=== PATIENT | male | born 1955 | race African-American/Black ===

== ENCOUNTER → 2021-06-15 | Outpatient (CLI) | payer OTHER | LOC: HYPER 15:00 | PROVIDERS: ATTEND Emergency Medicine | DX: S30.812A Abrasion of penis, initial encounter (principal); S31.30XA Unspecified open wound of scrotum and testes, initial encounter; Z87.891 Personal history of nicotine dependence; X58.XXXA Exposure to other specified factors, initial encounter; Y93.89 Activity, other specified; Y92.89 Other specified places as the place of occurrence of the external cause; Y99.8 Other external cause status ==